=== PATIENT | female | born 1960 | race African-American/Black ===

== ENCOUNTER 2016-09-24 23:31 | Emergency (ER) | payer OTHER ==
[2016-09-24 23:42] VITALS: TEMP 98.3; BMI 27.1
[2016-09-25] MEDS ORDERED: IBUPROFEN 600 MG TABLET (FP) PO ONE ×2 (01:11→02:10)
--- NOTE | 2016-09-25 01:11 | PDOC ---
History of Present Illness - General History Source: Patient Exam Limitations: No Limitations - History of Present Illness Initial Comments: The patient is a 56 yo F with no significant past medical history who presents s /p mechanical fall with R ankle pain and edema. The patient states the pain is localized to the exterior portion of her ankle. The patient state the pain was a 10/10 and now feels both painful and numb. The patient denies head trauma and LOC. The patient states she is unable to walk. The patient denies chest pain, lightheadedness and palpitations. The patient denies nausea, vomiting and diarrhea. The patient denies fevers and chills. PCP: Dr. Cali <Roma Burns - Last Filed: 09/25/16 01:14> <Neelima Lees - Last Filed: 09/25/16 03:54> - General Chief Complaint: Injury Stated Complaint: R ANKLE INJURY Time Seen by Provider: 09/25/16 00:42 Past History <Roma Burns - Last Filed: 09/25/16 01:14> - Past Medical History HTN: Yes - Psycho/Social/Smoking Cessation Hx Suicidal Ideation: No Smoking History: Never smoked <Neelima Lees - Last Filed: 09/25/16 03:54> - Past Medical History Allergies/Adverse Reactions: Allergies Allergy/AdvReac Type Severity Reaction Status Date / Time No Known Allergies Allergy Verified 09/24/16 23:42 Review of Systems - Review of Systems Able to Perform ROS?: Yes Comments:: GENERAL/CONSTITUTIONAL: No fever or chills. No weakness. HEAD, EYES, EARS, NOSE AND THROAT: No change in vision. No ear pain or discharge. No sore throat. CARDIOVASCULAR: No chest pain or shortness of breath. RESPIRATORY: No cough, wheezing, or hemoptysis. GASTROINTESTINAL: No nausea, vomiting, diarrhea or constipation. GENITOURINARY: No dysuria, frequency, or change in urination. MUSCULOSKELETAL:,+ R ankle pain and edema No neck or back pain. SKIN: No rash NEUROLOGIC: No headache, vertigo, loss of consciousness, or change in strength/ sensation. ENDOCRINE: No increased thirst. No abnormal weight change. HEMATOLOGIC/LYMPHATIC: No anemia, easy bleeding, or history of blood clots. ALLERGIC/IMMUNOLOGIC: No hives or skin allergy. <Roma Burns - Last Filed: 09/25/16 01:14> *Physical Exam - Vital Signs Last Vital Signs Temp Pulse Resp BP Pulse Ox 98.3 F 64 18 171/103 100 09/24/16 23:38 09/24/16 23:38 09/24/16 23:38 09/24/16 23:38 09/24/16 23:38 <Roma Burns - Last Filed: 09/25/16 01:14> - Vital Signs Last Vital Signs Temp Pulse Resp BP Pulse Ox 98.3 F 64 18 171/103 100 09/24/16 23:38 09/24/16 23:38 09/24/16 23:38 09/24/16 23:38 09/24/16 23:38 - Physical Exam Comments: GENERAL: Awake, alert, and fully oriented, in no acute distress HEAD: No signs of trauma EYES: PERRLA, EOMI, sclera anicteric, conjunctiva clear ENT: Auricles normal inspection, hearing grossly normal, nares patent, oropharynx clear without exudates. Moist mucosa NECK: Normal ROM, supple, no lymphadenopathy, JVD, or masses LUNGS: Breath sounds equal, clear to auscultation bilaterally. No wheezes, and no crackles HEART: Regular rate and rhythm, normal S1 and S2, no murmurs, rubs or gallops ABDOMEN: Soft, nontender, normoactive bowel sounds. No guarding, no rebound. No masses EXTREMITIES: R ankle with swelling and tenderness to the lateral malleolus. Remainder of extremities with normal range of motion, no edema. No clubbing or cyanosis. No cords, erythema, or tenderness NEUROLOGICAL: Cranial nerves II through XII grossly intact. Normal speech. Motor and sensation intact. Gait not tested due to nature of complaint. SKIN: Warm, Dry, normal turgor, no rashes or lesions noted. <Neelima Lees - Last Filed: 09/25/16 03:54> *DC/Admit/Observation/Transfer - Attestations Scribe Attestion: Documentation prepared by Roma Burns, acting as medical professionals for Neelima Lees MD, /DO. <Roma Burns - Last Filed: 09/25/16 01:14> <Neelima Lees - Last Filed: 09/25/16 03:54> Diagnosis at time of Disposition: Ankle pain Qualifiers: Chronicity: acute Laterality: right Qualified Code(s): M25.571 - Pain in right ankle and joints of right foot - Referrals Referrals: Nhi Cali [Primary Care Provider] -
--- NOTE | 2016-09-25 04:14 | PDOC ---
*Physical Exam - Vital Signs Last Vital Signs Temp Pulse Resp BP Pulse Ox 98.3 F 64 18 171/103 100 09/24/16 23:38 09/24/16 23:38 09/24/16 23:38 09/24/16 23:38 09/24/16 23:38 ED Treatment Course - Medications Given in the ED: ED Medications Discontinued Medications Generic Name Dose Route Start Last Admin Trade Name Mónica PRN Reason Stop Dose Admin Ibuprofen 600 mg 09/25/16 01:11 09/25/16 02:13 Motrin - PO 09/25/16 01:12 600 mg ONCE ONE Administration Medical Decision Making - Medical Decision Making 09/25/16 04:14 PT HAS A DISTAL FIBULA FRACTURE; UNSTABLE ANKLE MORTISE. PT WILL BE PLACED IN A POSTERIOR SPLINT AND SHE WILL BE NON WEIGHT BEARING. 09/25/16 04:48 PT COMES WILL BE SENT HOME WITH CRUTCHES AND NON WEIGHT BEARING. SHE WILL BE ASKED TO FOLLOW WITH MARIPOSA PORTILLO/NATHANAEL WHO ARE SHIFT LAB TECHNICIAN TODAY. SHE WILL REQUIRE SURGERY, MOST LIKELY TO REPAIR THE ANKLE JOINT *DC/Admit/Observation/Transfer Diagnosis at time of Disposition: Fracture of distal fibula Ankle pain Qualifiers: Chronicity: acute Laterality: right Qualified Code(s): M25.571 - Pain in right ankle and joints of right foot - Discharge Dispostion Disposition: HOME Condition at time of disposition: Fair Admit: No - Referrals Referrals: Nhi Cali [Primary Care Provider] - - Patient Instructions Printed Discharge Instructions: DI for Ankle Fracture, How To Perform RICE ( Rest, Ice, Compress, Elevate) - Post Discharge Activity Work/School Note: Back to Work
[2016-09-25 05:26] VITALS: BP 118/68; PULSE 78
== END 2016-09-25 05:27 | disposition home or self-care (01) ==
LOC: JER 23:31
PROC: 2W3LX1Z Immobilization of Right Lower Extremity using Splint (ICD-10-PCS; principal; 2016-09-24)
DX: S82.831A Other fracture of upper and lower end of right fibula, initial encounter for closed fracture (principal); W01.0XXA Fall on same level from slipping, tripping and stumbling without subsequent striking against object, initial encounter; Y93.89 Activity, other specified; Y92.038 Other place in apartment as the place of occurrence of the external cause
CPT/HCPCS: 29515; 73610-TC-RT; 99281-25